=== PATIENT | female | born 1955 | race Caucasian/White ===

== ENCOUNTER → 2023-11-05 12:23 | Outpatient (REF) | payer MEDICARE, SELFPAY ==
[2023-11-05 13:46] LABS: % Basophils 0.9 % (0-2); % Eosinophils 2.3 % (0-6); % Immature Granulocytes 0.9 % (0-0.5); % Lymphocytes 18.7 % (20.5-51.1); % Monocytes 11.2 % (1.7-9.3); Absolute Basophils 0.1 10^3/uL (0-0.2); Absolute Eosinophils 0.2 10^3/uL (0-0.7); Absolute Immature Granulocytes 0.1 10^3/uL (0-0.05); Absolute Lymphocytes 1.3 10^3/uL (1.2-3.4); Absolute Monocytes 0.8 10^3/uL (0.1-0.6); Absolute Neutrophils 4.6 10^3/uL (1.4-6.5); Hematocrit 39.3 % (37.0-47.0); Hemoglobin 13.4 g/dL (12.0-16.0); Mean Corp Hgb Conc. 34.1 g/dL (33.0-37.0); Mean Corpuscular Hgb 30.9 pg (27.0-31.0); Mean Corpuscular Volume 90.6 fL (81.0-99.0); Mean Platelet Volume 10.8 fL (7.4-10.4); Nucleated Red Blood Cells % 0 %; Platelet Count 215 10^3/uL (130-400); Red Blood Cell Count 4.34 10^6/uL (4.20-5.40); Red Cell Dist. Width 12.6 % (11.5-14.5)
[2023-11-05 14:26] LABS: Blood Urea Nitrogen 8 mg/dl (7-17); Calcium 9.1 mg/dl (8.4-10.2); Carbon Dioxide 26 mmol/L (22-30); Chloride 94 mmol/L (98-107); Glucose 99 mg/dl (70-99); Potassium 4.6 mmol/L (3.5-5.1); Sodium 127 mmol/L (135-145); eGFR > 60.00
== END ==
LOC: SDSPAT 12:23
PROVIDERS: ATTENDING PHYSICIAN Student in an Organized Health Care Education/Training Program; FAMILY PHYSICIAN Family Medicine; OTHER PHYSICIAN Internal Medicine Endocrinology, Diabetes & Metabolism
DX: Z01.818 Encounter for other preprocedural examination (principal)
CPT/HCPCS: 36415; 80048; 85025

== ENCOUNTER 2023-11-06 06:19 | Day surgery (SDC) | payer MEDICARE, SELFPAY ==
[2023-11-05 12:41] VITALS: BMI 49.4
--- NOTE | 2023-11-05 16:10 | PTCARENOTE ---
was notified of Na+ 127 collected today; no actions requested. Bessy at 's office was also notified of Na+ result.
[2023-11-06] VITALS (9 sets, daily range): BP systolic 115–145; BP diastolic 53–99; BMI 49.4
[2023-11-06 08:50] LABS: Glucose - Point of Care 146 mg/dl (70-99)
[2023-11-06] MEDS: NORMOSOL-R 1000 IV (08:53)
[2023-11-06] MEDS: VANCOCIN 300 MG IV (08:53)
[2023-11-06] MEDS: TYLENOL 1000 MG PO (08:53)
[2023-11-06] MEDS: VANCOCIN 300 ML IV (08:53)
[2023-11-06] MEDS: MOBIC 15 MG PO (08:54)
[2023-11-06 10:14] LABS: Glucose - Point of Care 131 mg/dl (70-99)
--- NOTE | 2023-11-06 10:32 | CM ---
Addendum entered by Peggy Quach RN 11/06/23 11:11:
CM provided patient's RN with DME script pending signature.
Original Note:
CM was consulted for DME and VN. CM reviewed medical records. CM [facility]. CM will continue to follow for DME needs.
[2023-11-06] MEDS: DILAUDID 0.5 MG IV (12:03)
[2023-11-06 12:12] LABS: Glucose - Point of Care 118 mg/dl (70-99)
--- NOTE | 2023-11-06 12:29 | W.PN.UPDATE ---
Update Note
Progress Note Update
Patient requires bedside commode due to inability to ambulate to bathroom due to non weight bearing status. Patient requires hospital bed for positioning of the body in ways not feasiable with an ordinary bed in order to alleviate pain and patient
requires frequent cahnge in body position and has an immediate need for change in position. Patient requires a wheelchair within the home to complete their daily activities
--- NOTE | 2023-11-06 14:42 | VNURNOTE ---
Home Health Liaison spoke with patient's spouse Chau at 1300 to discuss [facility] nurse/therapy, visits, schedule and homebound status. Chau is agreeable and understands that visits at home will be 2-3 x per week to assess and teach medical
management.
Chau is aware that [facility] will contact them for start of care in 1-2 days after discharge from .
[facility] referral completed in [facility].
Hospital bed, wheelchair and bedside commode ordered from [facility].
Clinicals faxed at 1230 and confirmed with Margy at [facility].
[facility] will call spouse and delivery to be scheduled to home later today.
== END 2023-11-06 14:05 | disposition home or self-care (01) ==
LOC: SDS 06:19
PROVIDERS: ATTENDING PHYSICIAN Student in an Organized Health Care Education/Training Program
DX: S92.311A Displaced fracture of first metatarsal bone, right foot, initial encounter for closed fracture (principal); S92.321A Displaced fracture of second metatarsal bone, right foot, initial encounter for closed fracture; S92.341A Displaced fracture of fourth metatarsal bone, right foot, initial encounter for closed fracture; S92.334A Nondisplaced fracture of third metatarsal bone, right foot, initial encounter for closed fracture; S90.822A Blister (nonthermal), left foot, initial encounter; X58.XXXA Exposure to other specified factors, initial encounter; M86.171 Other acute osteomyelitis, right ankle and foot; Z79.01 Long term (current) use of anticoagulants
CPT/HCPCS: 26746 ×2; 26742 ×2; 11044; 88304; 88311; 82962; 87070; 87075; 87147; 87176; 87205; 97162

== ENCOUNTER → 2024-03-10 12:36 | Outpatient (REF) | payer MEDICARE, SELFPAY ==
[2024-03-10 14:06] LABS: Hemoglobin 13.9 g/dL (12.0-16.0); Mean Corp Hgb Conc. 33.1 g/dL (33.0-37.0); Mean Corpuscular Hgb 31.5 pg (27.0-31.0); Mean Corpuscular Volume 95.2 fL (81.0-99.0); Mean Platelet Volume 10.9 fL (7.4-10.4); Platelet Count 204 10^3/uL (130-400); Red Blood Cell Count 4.41 10^6/uL (4.20-5.40); Red Cell Dist. Width 13.4 % (11.5-14.5); White Blood Cell Count 7.4 10^3/uL (4.8-10.8)
[2024-03-10 14:28] LABS: Blood Urea Nitrogen 13 mg/dl (7-17); Calcium 9.4 mg/dl (8.4-10.2); Carbon Dioxide 30 mmol/L (22-30); Chloride 93 mmol/L (98-107); Glucose 104 mg/dl (70-99); Potassium 5.2 mmol/L (3.5-5.1); Sodium 131 mmol/L (135-145); eGFR > 60.00
== END ==
LOC: SDSPAT 12:36
PROVIDERS: ATTENDING PHYSICIAN Student in an Organized Health Care Education/Training Program; FAMILY PHYSICIAN Family Medicine; OTHER PHYSICIAN Internal Medicine Cardiovascular Disease; OTHER PHYSICIAN Internal Medicine Endocrinology, Diabetes & Metabolism
DX: Z01.818 Encounter for other preprocedural examination (principal)
CPT/HCPCS: 36415; 80048; 85027

== ENCOUNTER 2024-03-15 06:04 | Day surgery (SDC) | payer MEDICARE, SELFPAY ==
[2024-03-10 12:55] VITALS: BMI 46.0
[2024-03-15] VITALS (8 sets, daily range): BP systolic 119–150; BP diastolic 49–64; BMI 46.0
[2024-03-15] MEDS: TYLENOL 1000 MG PO (06:45)
[2024-03-15] MEDS: MOBIC 15 MG PO (06:45)
[2024-03-15] MEDS: NORMOSOL-R 1000 IV (06:46)
[2024-03-15 06:47] LABS: Glucose - Point of Care 157 mg/dl (70-99)
[2024-03-15 08:04] LABS: Glucose - Point of Care 149 mg/dl (70-99)
== END 2024-03-15 09:17 | disposition home or self-care (01) ==
LOC: SDS 06:04
PROVIDERS: ATTENDING PHYSICIAN Student in an Organized Health Care Education/Training Program
DX: E10.69 Type 1 diabetes mellitus with other specified complication (principal); M86.8X7 Other osteomyelitis, ankle and foot; E10.621 Type 1 diabetes mellitus with foot ulcer; L97.512 Non-pressure chronic ulcer of other part of right foot with fat layer exposed
CPT/HCPCS: 28113; 88304; 88311; 82962; 87070; 87075; 87205; Q4118

== ENCOUNTER 2024-07-07 12:54 | Outpatient (RCR) | payer MEDICARE, SELFPAY | END 2024-07-07 23:59 | disposition home or self-care (01) | LOC: RPT 12:54 | PROVIDERS: ATTENDING PHYSICIAN Student in an Organized Health Care Education/Training Program; FAMILY PHYSICIAN Family Medicine | DX: L97.512 Non-pressure chronic ulcer of other part of right foot with fat layer exposed (principal); M79.671 Pain in right foot; M54.16 Radiculopathy, lumbar region; Z73.6 Limitation of activities due to disability | CPT/HCPCS: 97110; 97112; 97163 ==

== ENCOUNTER 2024-08-04 11:53 | Outpatient (RCR) | payer MEDICARE, SELFPAY | END 2024-08-04 23:59 | disposition home or self-care (01) | LOC: RPT 11:53 | PROVIDERS: ATTENDING PHYSICIAN Student in an Organized Health Care Education/Training Program; FAMILY PHYSICIAN Family Medicine | DX: L97.512 Non-pressure chronic ulcer of other part of right foot with fat layer exposed (principal); M79.671 Pain in right foot; M54.16 Radiculopathy, lumbar region; Z73.6 Limitation of activities due to disability | CPT/HCPCS: 97110; 97112 ==

== ENCOUNTER 2024-09-06 15:56 | Outpatient (RCR) | payer MEDICARE, SELFPAY | END 2024-09-06 23:59 | disposition home or self-care (01) | LOC: RPT 15:56 | PROVIDERS: ATTENDING PHYSICIAN Student in an Organized Health Care Education/Training Program; FAMILY PHYSICIAN Family Medicine | DX: L97.512 Non-pressure chronic ulcer of other part of right foot with fat layer exposed (principal); M79.671 Pain in right foot; M54.16 Radiculopathy, lumbar region; Z73.6 Limitation of activities due to disability | CPT/HCPCS: 97110; 97112; 97116 ==

== ENCOUNTER 2024-09-22 12:01 | Outpatient (RCR) | payer MEDICARE, SELFPAY | END 2024-09-22 23:59 | disposition home or self-care (01) | LOC: RPT 12:01 | PROVIDERS: ATTENDING PHYSICIAN Student in an Organized Health Care Education/Training Program; FAMILY PHYSICIAN Family Medicine | DX: L97.512 Non-pressure chronic ulcer of other part of right foot with fat layer exposed (principal); M79.671 Pain in right foot; M54.16 Radiculopathy, lumbar region; Z73.6 Limitation of activities due to disability | CPT/HCPCS: 97110; 97112 ==

== ENCOUNTER 2025-03-01 06:18 | Day surgery (SDC) | payer MEDICARE, SELFPAY ==
[2025-03-01 07:20] VITALS: BP 155/61; BMI 43.3
[2025-03-01 07:30] VITALS: BMI 43.3
[2025-03-01 07:48] LABS: Glucose - Point of Care 155 mg/dl (70-99)
[2025-03-01 09:00] VITALS: BP 86/70
[2025-03-01 09:13] VITALS: BP 107/84
== END 2025-03-01 09:30 | disposition home or self-care (01) ==
LOC: SDS 06:18
PROVIDERS: ATTENDING PHYSICIAN Internal Medicine
DX: Z12.11 Encounter for screening for malignant neoplasm of colon (principal); D12.2 Benign neoplasm of ascending colon; D12.3 Benign neoplasm of transverse colon; K62.1 Rectal polyp; K64.8 Other hemorrhoids; K64.4 Residual hemorrhoidal skin tags; Z86.0101 Personal history of adenomatous and serrated colon polyps; Z79.01 Long term (current) use of anticoagulants
CPT/HCPCS: 45385; 45380; 88305; 82962

== ENCOUNTER 2025-04-25 23:51 | Day surgery (SDC) | payer MEDICARE, SELFPAY ==
[2025-04-25 21:16] VITALS: BP 101/66
[2025-04-25 21:18] LABS: Glucose - Point of Care 70 mg/dl (70-99)
--- NOTE | 2025-04-25 21:45 | ED.GENMED ---
History of Present Illness
General
Chief Complaint: Esophageal Problem
Source: patient
Exam Limitations: none
Time Seen by Provider: 04/25/25 21:36
Nursing documentation reviewed up to this point in time: agreed with
History of Present Illness
History of Present Illness:
Patient with history of atrial fibrillation on Eliquis and type 1 diabetes, presents to ED secondary to persistent sensation of piece of steak stuck in her throat, while having dinner this evening around 7 PM. Since then, patient has not been able
to tolerate even a sip of water. Patient has been constantly spitting up her own saliva. Denies vomiting. Denies previous history of similar symptoms. However, patient and spouse report that recently, patient has had difficult time swallowing
large pills.
Past History
Past History
ED Past Medical History: Asthma, HTN, Hypercholesterolemia, IDDM and Hypothyroidism
ED Past Surgical History: Cholecystectomy, and Gynecological (Hysterectomy)
Social History
Tobacco: Former smoker
Alcohol: Daily (Wine 3 glasses)
Drug: None
Personal:
Living: with family
Employment: Employed
Family History
Family History: Early CAD
Review of Systems
Review of Systems
Allergies reviewed?: Yes
All Other Systems: ROS reviewed and negative except as documented in HPI and ROS
Constitutional: Reports no symptoms; Denies fever
ABD/GI: Reports nausea and other (Sensation of a piece of steak stuck in throat.); Denies abdominal pain or vomiting
Musculoskeletal: Reports no symptoms
Skin: Reports no symptoms
Neurological: Reports no symptoms
Phy Exam
Physical Exam
Physical Exam:
Physical Exam
General: mild distress. afebrile
Head: nc/at. eomi
Neck: supple. no meningeal signs.
Heart: s1/s2 regular rate and rhythm
Lungs: no acute respiratory distress. clear bilaterally
Abdomen: normal bowel sounds. not tender.
Neuro: alert and oriented x 3. no focal neurological deficits
Skin: no rash
Psychiatric: well kept. interactive and cooperative
Extremities: no edema. no calf tenderness.
Course
Orders/Labs/Results
Orders:
Orders
04/25/25 21:40
Glucagon [GlucaGen] 1 mg IV NOW STA
04/25/25 21:46
Basic Metabolic Panel Urgent
Complete Blood Count/No Diff Urgent
Prothrombin Time Urgent
04/25/25 22:15
Glucagon [GlucaGen] 1 mg IV NOW STA
04/25/25 23:28
Glycopyrrolate [Robinul] 0.2 mg .ROUTE .STK-MED ONE
Lidocaine 2% Mpf [Xylocaine Mpf 2%] 100 mg .ROUTE .STK-MED ONE
Phenylephrine HCl/0.9% NaCl [Usman-Synephrine] 1,000 mcg .ROUTE .STK-MED ONE
Rocuronium [place] [Rocuronium] 50 mg .ROUTE .STK-MED ONE
Succinylcholine Chloride [Succinylcholine] 200 mg .ROUTE .STK-MED ONE
Sugammadex Sodium [Bridion] 200 mg .ROUTE .STK-MED ONE
ePHEDrine SULFATE [Emerphed] 50 mg .ROUTE .STK-MED ONE
04/25/25 23:29
Fentanyl Citrate/Pf [Sublimaze] 100 mcg .ROUTE .STK-MED ONE
Propofol [Diprivan] 20 ml .ROUTE .STK-MED
04/26/25 00:32
Fentanyl Citrate/Pf [Sublimaze] 25 mcg IV [id number] PRN
Fentanyl Citrate/Pf [Sublimaze] 25 mcg IV [id number] PRN
Fentanyl Citrate/Pf [Sublimaze] 50 mcg IV [id number] PRN
Ondansetron Injectable [Zofran] 4 mg IV PACU-ONCEPRN PRN
Notify MD As Directed
Notify physician if: for SDS patients with known or suspected sleep obstructive sleep apnea, monitor in the
PACU.
Notify MD for any apneic/desaturation episodes
O2 Therapy [RESP] Urgent
Titrate/Wean O2 to maintain O2 sat greater than (%): 92
Special Instructions: -Provide supplemental oxygen to achieve O2 sat of 92% or greater.
-After 15 min, may wean O2 and discontinue if patient is able to maintain O2 sat of 92%
or greater during recovery period.
If patient is a discharge home, without oxygen therapy, notify anestheiologist if
unable to maintain O2 SAT of 92% or greater on room air for MD clearance.
04/26/25 00:45
Normosol (Mult Electrolytes) [Normosol-R/Plasmalyte-A] 1,000 ml IV PER PROTOCOL
04/26/25 01:00
Flush (0.9% Sodium Chloride) [Flush (Nss)] See Dose Instructions IV PER PROTOCOL
Abnormal Lab Results
04/25/25
21:46
PT 15.7 H Sec
(11.4-14.6)
Sodium 132 L mmol/L
(135-145)
Glucose 52 L* mg/dl
(70-99)
04/25/25 21:46
04/25/25 21:46
Vital Signs
Initial and Last Documented VS:
Initial Vital Signs
Temp Pulse Resp BP Pulse Ox
97.8 F 83 20 101/66 95
04/25/25 21:16 04/25/25 21:16 04/25/25 21:16 04/25/25 21:16 04/25/25 21:16
Last Documented Vital Signs
Temp Pulse Resp BP Pulse Ox
97.5 F 75 13 128/49 94
04/26/25 00:53 04/26/25 01:06 04/26/25 01:06 04/26/25 01:13 04/26/25 01:06
MDM/Problems Addressed
MDM/Problems Addressed:
Patient with moderate distress upon initial evaluation with difficulty tolerating secretion. Discussed with on-call GI physician, Dr.Hannah Arana, who recommends administering glucagon 1mg x 2, 15 min apart.
Unfortunately, even after 2 doses of glucagon, patient remains symptomatic. Patient will require potential endoscopic evaluation.
*Pulse Oximetry
SaO2: 95
Oxygen Mode of Delivery: Room air
Patient hypoxic: no
*Critical Care Note
Total Time (30-74mins, 75-104mins- exclusive of procedures): Not Applicable
ED Attending Note
-
Portions of this chart may have been created with voice recognition software.� Occasional wrong word or��sound alike� substitutions may have occurred due to the inherent limitations of voice recognition software.
Discharge Plan
Departure
Patient Disposition: GI LAB
Date of Disposition: 04/25/25
Time of Disposition: 22:41
Admit to: GI lab
Presentation/result/management discussed w/ accepting /:
Discharge Problem:
Food impaction of esophagus
Interventions
Interventions:
*Risk Screen - Suicide Last Done: 04/25/25 21:16
*General Assessment Last Done: 04/25/25 21:16
*Neglect/Abuse Screening Last Done: 04/25/25 21:16
*ED- Fall Risk Assessment Last Done: 04/25/25 22:24
*ED COVID-19 Vaccine History Last Done: 04/25/25 22:24
*Nursing Disposition Last Done: 04/25/25 23:50
SE-Pbjdku-Qrnyjixsbn Assessment Last Done: 04/25/25 22:24
ED-EENT Assessment Last Done: 04/25/25 22:24
Discharge Date and Time
Discharge Date/Time: 04/25/25 23:50
[2025-04-25 21:52] LABS: Hematocrit 40.9 % (37.0-47.0); Hemoglobin 13.5 g/dL (12.0-16.0); Mean Corp Hgb Conc. 33.0 g/dL (33.0-37.0); Mean Corpuscular Volume 93.4 fL (81.0-99.0); Platelet Count 180 10^3/uL (130-400); Red Cell Dist. Width 13.3 % (11.5-14.5)
[2025-04-25 22:00] VITALS: BP 178/76
[2025-04-25 22:03] LABS: INR 1.23; PT 15.7 Sec (11.4-14.6)
[2025-04-25 22:11] LABS: Blood Urea Nitrogen 12 mg/dl (7-17); Calcium 9.7 mg/dl (8.4-10.2); Carbon Dioxide 26 mmol/L (22-30); Chloride 98 mmol/L (98-107); Glucose 52 mg/dl (70-99); Potassium 3.7 mmol/L (3.5-5.1); Sodium 132 mmol/L (135-145); eGFR > 60.00
[2025-04-25 22:12] LABS: Glucose - Point of Care 92 mg/dl (70-99)
[2025-04-25 23:00] VITALS: BP 170/76
[2025-04-25 23:22] VITALS: BMI 43.8
--- NOTE | 2025-04-25 23:42 | CON.GI ---
Consultation
-
Date/Time Consultation Requested: 04/25/2025 1000pm
Date/Time Consultation Performed: 1145pm
Requesting Provider: Dr Shell
Performing Provider: Dr Arana
Reason for Consultation: Food impaction
Medical History
Chief Complaint / HPI
Chief Complaint: food stuck
History of Present Illness:
Abbi is a 69yo W with h/o DM1 and afib on eliquis who presents for sensation of food stuck in throat. She was eating dinner around 7pm and after having steak felt that it would not go down. She is not tolerating secretions and cannot drink
water. She is uncomfortable. She has h/o dysphagia in the past especially with large pills. She has no issues with liquids. She is known to Dr Fay Seo of GI with recent Cscope done February 2025. She did use eliquis today. Denies chronic
nsaid use. She has no tobacco or ETOH daily intake.
Past Medical History
Past Medical History: Other (Asthma, HTN, hyperlipidemia, hypothyroidism)
Past Surgical History: Cholecystectomy, and Other (Gynecological)
Social History
Tobacco: Former Smoker
Alcohol: Daily
Drug: None
Personal:
Living: With Family
Employment: Employed
Family History
Family History: Other (Denies GI cancers)
Allergies / Home Medications
Allergy/AdvReac Type Severity Reaction Status Date / Time
pollen extracts Allergy congestion Verified 04/25/25 21:20
Sulfa (Sulfonamide Allergy Rash Verified 04/25/25 21:20
Antibiotics)
sulfisoxazole Allergy Rash Verified 04/25/25 21:20
codeine AdvReac Vomiting Verified 04/25/25 21:20
�Medication �Instructions �Recorded
escitalopram oxalate 20 mg tablet 20 mg PO DAILY 08/02/10
levothyroxine 112 mcg tablet 224 mcg PO MOTUWETH 08/02/10
montelukast 10 mg tablet 10 mg PO HS 05/02/16
multivitamin with folic acid 400 1 tab PO DAILY 07/14/17
mcg tablet (Tab-A-Mamie)
biotin 2,500 mcg capsule 2,500 mcg PO DAILY 04/02/21
insulin lispro 100 unit/mL 0 unit SC BOLUS 04/02/21
subcutaneous solution (Humalog
U-100 Insulin)
lisinopril 5 mg tablet 5 mg PO DAILY 04/02/21
metoprolol succinate 25 mg 12.5 mg PO HS 04/02/21
tablet,extended release 24 hr
apixaban 5 mg tablet (Eliquis) 5 mg PO BID ##0 04/06/21
cholecalciferol (vitamin D3) 50 50 mcg PO DAILY 07/25/22
mcg (2,000 unit) capsule (Vitamin
D3)
atorvastatin 80 mg tablet 80 mg PO DAILY 11/04/23
ezetimibe 10 mg tablet 10 mg PO DAILY 11/06/23
acetaminophen 500 mg tablet 1,000 mg PO Q6H PRN pain 03/15/24
torsemide 10 mg tablet 10 mg PO PRN PRN swelling 03/15/24
Review of Systems
-
All other systems: A 12 pt ROS was Negative except as stated above in HPI
Vital Signs
Temp Pulse Resp BP Pulse Ox
97.8 F 77 17 170/76 97
04/25/25 21:16 04/25/25 23:00 04/25/25 23:00 04/25/25 23:00 04/25/25 23:00
Physical Exam
Exam
GEN: No acute distress, conversant spitting up in basin
HEENT: anicteric, extraocular movements intact, clear oropharynx without exudates
GI: soft, obese, non-distended, not tender to palpation, normal active bowel sounds, no hepatosplenomegaly
EXT: warm, well perfused, trace edema bilaterally
NEURO: AAOx3, non-focal
Results
WBC 7.5 10^3/uL (4.8-10.8) 04/25/25 21:46
Hgb 13.5 g/dL (12.0-16.0) 04/25/25 21:46
Hct 40.9 % (37.0-47.0) 04/25/25 21:46
MCV 93.4 fL (81.0-99.0) 04/25/25 21:46
Plt Count 180 10^3/uL (130-400) 04/25/25 21:46
PT 15.7 Sec (11.4-14.6) H 04/25/25 21:46
INR 1.23 04/25/25 21:46
Sodium 132 mmol/L (135-145) L 04/25/25 21:46
Potassium 3.7 mmol/L (3.5-5.1) 04/25/25 21:46
Chloride 98 mmol/L (98-107) 04/25/25 21:46
Carbon Dioxide 26 mmol/L (22-30) 04/25/25 21:46
BUN 12 mg/dl (7-17) 04/25/25 21:46
Creatinine 0.7 mg/dL (0.6-1.0) 04/25/25 21:46
Calcium 9.7 mg/dl (8.4-10.2) 04/25/25 21:46
Diagnostic Image Results: None
Prior GI Procedures:
EGD: None prior
02/2025 Colonoscopy: Dr Seo - Perianal skin tags found on perianal exam.
- Two small polyps in the ascending colon, removed
with a cold snare. Resected and retrieved.
- One small polyp in the transverse colon, removed
with a cold snare. Resected and retrieved.
- Two diminutive polyps in the rectum, removed with a
jumbo cold forceps. Resected and retrieved.
- Diverticulosis in the sigmoid colon.
- Non-bleeding internal hemorrhoids.
- A tattoo was seen in the rectum. The tattoo site
appeared normal.
- Biopsies were taken with a cold forceps from the
right colon and left colon for evaluation of
microscopic colitis.
Assessment / Plan
-
Abbi is a 69yo W with h/o DM1 and afib on eliquis who presents with acute food impaction after eating steak at 7pm today. No improvement after 2 doses of IV glucagon in the ER.
Impression
- Food impaction
- Afib on eliquis
- DM1
- Hyperlipidemia
- Hypothyroidism
- Allergies
- HTN
- CHF
- Asthma
Recommendations
- Urgent EGD today with disimpaction
- Risk/benefits discussed
- Hold anticoagulation
- Intubation prior to EGD to protect airway
- Anticipate d/c home after above
- Close FU with Dr Seo OP basis
-
-
Thank you for consultation and allowing me to participate in the patient's care. Please call the habilitative interventionist GI physician during the after hours with any questions or concerns.
[2025-04-26 00:38] VITALS: BP 170/76
[2025-04-26 00:39] VITALS: BP 150/53
[2025-04-26 00:45] VITALS: BP 140/57
[2025-04-26 01:00] VITALS: BP 127/66
[2025-04-26 01:13] VITALS: BP 128/49
== END 2025-04-26 01:13 | disposition home or self-care (01) ==
LOC: PACU 23:51
PROVIDERS: ATTENDING PHYSICIAN Internal Medicine Gastroenterology; EMERGENCY PHYSICIAN Emergency Medicine; FAMILY PHYSICIAN Family Medicine
DX: T18.128A Food in esophagus causing other injury, initial encounter (principal); W44.F3XA Food entering into or through a natural orifice, initial encounter; K29.70 Gastritis, unspecified, without bleeding; I10 Essential (primary) hypertension; E78.00 Pure hypercholesterolemia, unspecified; E03.9 Hypothyroidism, unspecified; J45.909 Unspecified asthma, uncomplicated; E10.9 Type 1 diabetes mellitus without complications; Z87.891 Personal history of nicotine dependence; I48.91 Unspecified atrial fibrillation; Z79.01 Long term (current) use of anticoagulants
CPT/HCPCS: 43247; 80048; 82962; 85027; 85610; 96374; 96376; 99285; J1610

== ENCOUNTER 2025-05-05 02:51 | Day surgery (SDC) | payer MEDICARE, SELFPAY ==
[2025-05-04 23:37] VITALS: BP 171/71
--- NOTE | 2025-05-05 00:18 | ED.GENMED ---
History of Present Illness
General
Chief Complaint: Swallowing Problem
Source: patient
Exam Limitations: none
Time Seen by Provider: 05/05/25 00:14
History of Present Illness
History of Present Illness:
See MDM
Past History
Past History
ED Past Medical History: Asthma, HTN, Hypercholesterolemia, IDDM and Hypothyroidism
ED Past Surgical History: Cholecystectomy, and Gynecological (Hysterectomy)
Social History
Tobacco: Former smoker
Alcohol: Daily (Wine 3 glasses)
Drug: None
Personal:
Living: with family
Employment: Employed
Family History
Family History: Early CAD
Phy Exam
Physical Exam
Physical Exam:
See MDM
Course
Orders/Labs/Results
Orders:
Orders
05/05/25 00:17
0.9% Sodium Chloride 1000 ml [Nss] 1,000 ml IV BOLUS
Glucagon [GlucaGen] 1 mg IM NOW STA
05/05/25 00:29
Glucagon [GlucaGen] 1 mg IV NOW STA
05/05/25 00:58
Glucagon [GlucaGen] 1 mg IV NOW STA
Vital Signs
Initial and Last Documented VS:
Initial Vital Signs
Temp Pulse Resp BP Pulse Ox
98.3 F 76 18 171/71 96
05/04/25 23:37 05/04/25 23:37 05/04/25 23:37 05/04/25 23:37 05/04/25 23:37
Last Documented Vital Signs
Temp Pulse Resp BP Pulse Ox
98.3 F 76 18 171/71 96
05/04/25 23:37 05/04/25 23:37 05/04/25 23:37 05/04/25 23:37 05/05/25 00:20
MDM/Problems Addressed
Differential Diagnosis Includes:
Note:
CHIEF COMPLAINT(S)
Dysphagia due to food impaction.
HISTORY OF PRESENT ILLNESS
The patient is a 69-year-old female presenting with difficulty swallowing due to food becoming lodged in the esophagus. This has happened previously, with this episode being the second occurrence. It began while attempting to eat shredded chicken
with tomato sauce and gluten-free pasta, prepared to be very soft. Despite these precautions, the food still became stuck. The patient is frustrated, describing this as occurring on the third consecutive night of eating the prepared dish. The
incident occurred just before seeking medical assistance today.
The patient also reported that her blood sugar levels have been running low, recently measuring 71 mg/dL and previously 68 mg/dL.
PHYSICAL EXAM
General: Mildly uncomfortable and constantly spitting. Unable to tolerate secretions
Skin: Warm, dry.
Head: Normocephalic, atraumatic
Neck: Appears supple, trachea midline.
Eyes, Ears, Nose, Mouth, and Throat: Oral mucosa moist.
Cardiovascular: No signs of cyanosis
Respiratory: Respirations are non-labored.
Abdomen: Non-distended
Musculoskeletal: No deformities
Neurological: No focal neurological deficit observed.
Psychiatric: Cooperative, appropriate mood and affect.
PLAN
1. Initiate intravenous (IV) access and administer fluids.
2. Administer glucagon in an attempt to resolve the food impaction.
3. Monitor blood glucose levels and provide intravenous dextrose if needed due to hypoglycemia.
DIFFERENTIAL DIAGNOSIS
The Differential Diagnosis includes, in no particular order and is not limited to:
1. Esophageal stricture
2. Esophageal web
3. Achalasia
4. Eosinophilic esophagitis
5. Esophageal cancer
6. Esophageal motility disorder
7. Schatzki ring
8. Glycogen storage disease
9. Peptic stricture
10. Zenkers diverticulum
SUMMARY OF ENCOUNTER
The patient, a 69-year-old female, was seen in the emergency department for dysphagia due to food impaction. Despite preparing her meals to be soft, she experienced the food getting lodged in the esophagus for the second time. Management included
initiating IV access and the administration of IV glucagon in an attempt to clear the impaction. However, the patient remained uncomfortable and was unable to manage secretions adequately.
DISPOSITION
The patient will be admitted to the GI lab for further intervention.
ASSESSMENT
Dysphagia due to food impaction requiring emergent endoscopy.
EMERGENCY TREATMENTS ADMINISTERED
Intravenous glucagon was administered in two doses.
MANAGEMENT OF THE PATIENTS CARE WAS DISCUSSED WITH
Consultation was held with the orthotic/prosthetic clinician, who agreed to perform an emergent endoscopy.
PLAN
The plan is to proceed with an urgent endoscopic procedure to alleviate the food impaction.
MEDICATION RECONCILIATION
- IV glucagon was administered in two doses.
DIAGNOSIS
Dysphagia (R13.10), likely due to esophageal obstruction/food impaction.
*Pulse Oximetry
SaO2: 96
Oxygen Mode of Delivery: Room air
Patient hypoxic: no
*Critical Care Note
Total Time (30-74mins, 75-104mins- exclusive of procedures): Not Applicable
ED Attending Note
-
Portions of this chart may have been created with voice recognition software.� Occasional wrong word or��sound alike� substitutions may have occurred due to the inherent limitations of voice recognition software.
Discharge Plan
Departure
Patient Disposition: Admit
Date of Disposition: 05/05/25
Time of Disposition: 01:51
Admit to: GI lab
Presentation/result/management discussed w/ accepting MD/DO: Drapery Inspector
Discharge Problem:
Food impaction of esophagus
Prescriptions:
No Action
levothyroxine 112 MCG tablet
224 mcg PO MOTUWETH
escitalopram oxalate 20 MG tablet
20 mg PO DAILY
montelukast 10 MG tablet
10 mg PO HS
multivitamin with folic acid [Tab-A-Mamie] 1 TABLET tablet
1 tab PO DAILY
lisinopril 5 MG tablet
5 mg PO DAILY
insulin lispro [Humalog U-100 Insulin] 100 UNIT/ML solution
0 unit SC BOLUS
Patient Comments:
Insulin Pump- dose depends on patients blood sugar. Patient self doses self with humolog U insulin. Patient gave herself 3 units at 1020 for a blood sugar of 195 on her own machine. Patient dosed self without telling staff first. She uses humalog
insulin, gives herself bolus with meals and PRN. Pt unsure of basal insulin dosage when asked what her sliding scale is.
biotin 2,500 MCG capsule
2,500 mcg PO DAILY
metoprolol succinate 25 MG tablet extended release 24 hr
12.5 mg PO HS
Eliquis 5 MG tablet
5 mg PO BID Qty: 0 0RF
cholecalciferol (vitamin D3) [Vitamin D3] 50 mcg (2,000 unit) Capsule
50 mcg PO DAILY
atorvastatin 80 mg Tablet
80 mg PO DAILY
ezetimibe 10 mg Tablet
10 mg PO DAILY
acetaminophen [Tylenol Ex Str Arthritis Pain] 500 mg Tablet
1,000 mg PO Q6H PRN (Reason: pain)
torsemide 10 mg Tablet
10 mg PO PRN PRN (Reason: swelling)
Referrals:
Jaqui Purcell MD [Family Provider, Family Practice]
Interventions
Interventions:
*Risk Screen - Suicide Last Done: 05/04/25 23:37
*General Assessment Last Done: 05/04/25 23:37
*Neglect/Abuse Screening Last Done: 05/04/25 23:37
*ED- Fall Risk Assessment Last Done: 05/05/25 01:33
*ED COVID-19 Vaccine History Last Done: 05/05/25 01:33
ED-EENT Assessment Last Done: 05/04/25 23:55
NM-Dmktdm-Eluszxdmti Assessment Last Done: 05/04/25 23:55
ED- Pulmonary Assessment Last Done: 05/04/25 23:55
ED- Neurological Assessment Last Done: 05/04/25 23:55
ED Swallowing Screen Last Done: 05/05/25 01:33
Discharge Date and Time
Print Language: GREEK
[2025-05-05] MEDS: NSS 1000 IV (00:23)
[2025-05-05 02:00] VITALS: BP 150/61
--- NOTE | 2025-05-05 03:14 | CON.GI ---
Consultation
-
Date/Time Consultation Requested: 05/05/2025
Date/Time Consultation Performed: 05/05/2025
Requesting Provider:
Performing Provider:
Reason for Consultation: Food impaction
Medical History
Chief Complaint / HPI
Chief Complaint: Food bolus impaction, dysphagia
History of Present Illness:
This is a 69-year-old female with past medical history of hypertension, hyperlipidemia, hypothyroidism, asthma, A-fib on Eliquis, GAVIN uses CPAP, scleroderma, type 1 diabetes, colon polyps who was recently in the emergency room on 04/25/2025 with food
bolus impaction presents now again with food impaction.� She had called me earlier and said that she had eaten chicken but she says that she cooked it soft and blended it but after she ate a piece of chicken she felt that she was unable to swallow
her secretions and has been spitting up, I told her to come into the emergency room.� She received 2 doses of glucagon but still feels that the food is stuck.� She denies any symptoms of reflux. �She has been having trouble swallowing large pills
and also meat and has been trying to be on a softer diet since her recent endoscopy. she had an emergent endoscopy on 04/26/[address] Arana with removal of the food bolus and has an appointment actually scheduled today with Dr. Seo.� She also
has a history of colon polyps and had a initial colonoscopy in [address] Dial and then subsequently had a repeat colonoscopy in February with Dr. Seo and had tubular adenomas then also and was recommended repeat in 3 years.� She currently
denies any abdominal pain, no chest pain or shortness of breath.
Past Medical History
Past Medical History: Other (paroxysmal atrial fibrillation on Eliquis, GAVIN on CPAP, scleroderma, type 1 diabetes on insulin, dyslipidemia, hypertension, chronic lower extremity edema, colon polyps )
Past Surgical History: Other (Cholecystectomy 2020, , total hysterectomy, carpal tunnel release, left heel wound I&D, right foot surgery)
Social History
Tobacco: Former Smoker
Alcohol: Occasional
Drug: None
Family History
Family History: Reviewed & Not Pertinent
Allergies / Home Medications
Allergy/AdvReac Type Severity Reaction Status Date / Time
pollen extracts Allergy congestion Verified 04/25/25 21:20
Sulfa (Sulfonamide Allergy Rash Verified 04/25/25 21:20
Antibiotics)
sulfisoxazole Allergy Rash Verified 04/25/25 21:20
codeine AdvReac Vomiting Verified 04/25/25 21:20
�Medication �Instructions �Recorded
escitalopram oxalate 20 mg tablet 20 mg PO DAILY 08/02/10
levothyroxine 112 mcg tablet 224 mcg PO MOTUWETH 08/02/10
montelukast 10 mg tablet 10 mg PO HS 05/02/16
multivitamin with folic acid 400 1 tab PO DAILY 07/14/17
mcg tablet (Tab-A-Mamie)
biotin 2,500 mcg capsule 2,500 mcg PO DAILY 04/02/21
insulin lispro 100 unit/mL 0 unit SC BOLUS 04/02/21
subcutaneous solution (Humalog
U-100 Insulin)
lisinopril 5 mg tablet 5 mg PO DAILY 04/02/21
metoprolol succinate 25 mg 12.5 mg PO HS 04/02/21
tablet,extended release 24 hr
apixaban 5 mg tablet (Eliquis) 5 mg PO BID ##0 04/06/21
cholecalciferol (vitamin D3) 50 50 mcg PO DAILY 07/25/22
mcg (2,000 unit) capsule (Vitamin
D3)
atorvastatin 80 mg tablet 80 mg PO DAILY 11/04/23
ezetimibe 10 mg tablet 10 mg PO DAILY 11/06/23
acetaminophen 500 mg tablet 1,000 mg PO Q6H PRN pain 03/15/24
torsemide 10 mg tablet 10 mg PO PRN PRN swelling 03/15/24
Review of Systems
-
All other systems: A 12 pt ROS was Negative except as stated above in HPI
Vital Signs
Temp Pulse Resp BP Pulse Ox
98.3 F 88 18 150/61 96
05/04/25 23:37 05/05/25 02:05 05/05/25 02:05 05/05/25 02:00 05/05/25 02:01
Physical Exam
Exam
General: No Apparent Distress and Other (Spitting secretions into a cup)
HEENT: Normocephalic
Respiratory: Clear
Cardiac: S1/S2
GI: Soft, Non Tender, Non Distended and Normal Bowel Sounds
Musculoskeletal: No Clubbing
Skin: Warm
Neuro: Awake, Alert and Oriented
Hematologic/Lymphatic: No Lymphadenopathy
Psych: Calm
Results
Diagnostic Image Results:
labs
04/25/2025 WBC 7.5 hemoglobin 13.5 MCV 93.4 platelets 180 sodium 132 potassium 3.7 chloride 98 bicarb 26 BUN 12 creatinine 0.7 glucose 52 calcium 9.7
Prior GI Procedures:
04/26/2025 endoscopy food in the lower third of the esophagus removal was successful using Gatorade and rescue net gastritis stomach was otherwise normal normal duodenum
03/01/[address] Seo perianal skin tags polyps in the ascending colon TA, transverse colon - TA and rectum � HP diverticulosis in the sigmoid colon nonbleeding internal hemorrhoids tattoo seen in the rectum random colon biopsies
were negative for microscopic colitis,
09/28/[address] Dial for positive Cologuard test 12 mm rectum polyp- TA 5 mm sigmoid polyp- TA diverticulosis in the sigmoid and descending colon internal hemorrhoids random colon biopsies were negative for microscopic colitis
Assessment / Plan
-
1. Food bolus impaction after she had eaten chicken earlier for dinner today and with recent episode of food bolus impaction also on 04/25/2025 requiring emergent endoscopy with removal of food bolus. She received 2 doses of glucagon with no
improvement will schedule her for urgent endoscopy with removal of food bolus and she also has an appointment later today with Dr. Seo which she is going to keep. If she does have evidence of Schatzki's ring or stricture then will need to
schedule for repeat endoscopy with dilatation off of Eliquis she did take her Eliquis last night.
2. History of colon polyps up-to-date with her surveillance her last colonoscopy was in February and prior to that had a colonoscopy in 2020 and had tubular adenomas and needs repeat colonoscopy in 2027
Data Reviewed
-
Old Records: Reviewed
-
-
Thank you for consultation and allowing me to participate in the patient's care. Please call the funeral location manager GI physician during the after hours with any questions or concerns.
[2025-05-05 03:28] VITALS: BP 150/61; BP 153/56; BP 155/55
[2025-05-05 03:55] VITALS: BP 158/58
== END 2025-05-05 03:50 | disposition home or self-care (01) ==
LOC: GI 02:51
PROVIDERS: ATTENDING PHYSICIAN Internal Medicine Gastroenterology; EMERGENCY PHYSICIAN Student in an Organized Health Care Education/Training Program; FAMILY PHYSICIAN Family Medicine
DX: K22.2 Esophageal obstruction (principal); T18.128A Food in esophagus causing other injury, initial encounter; W44.F3XA Food entering into or through a natural orifice, initial encounter; K44.9 Diaphragmatic hernia without obstruction or gangrene; Z79.01 Long term (current) use of anticoagulants
CPT/HCPCS: 43247; 96361; 96374; 96376; 99285; J1610

== ENCOUNTER → 2025-05-11 13:03 | Outpatient (REF) | payer MEDICARE, SELFPAY | LOC: REG 13:03 | PROVIDERS: ATTENDING PHYSICIAN Student in an Organized Health Care Education/Training Program; FAMILY PHYSICIAN Family Medicine | DX: L03.116 Cellulitis of left lower limb (principal) | CPT/HCPCS: 87070; 87075; 87147; 87205 ==

== ENCOUNTER 2025-05-12 06:13 | Day surgery (SDC) | payer MEDICARE, SELFPAY ==
[2025-05-12 12:49] VITALS: BMI 43.5
[2025-05-12 12:50] VITALS: BMI 43.5
[2025-05-12 12:52] VITALS: BP 143/66
[2025-05-12 12:56] LABS: Glucose - Point of Care 121 mg/dl (70-99)
[2025-05-12 14:52] VITALS: BP 139/53
[2025-05-12 15:00] VITALS: BP 136/58
[2025-05-12 15:15] VITALS: BP 143/56
== END 2025-05-12 15:30 | disposition home or self-care (01) ==
LOC: SDS 06:13
PROVIDERS: ATTENDING PHYSICIAN Internal Medicine Gastroenterology
DX: R13.10 Dysphagia, unspecified (principal); K22.2 Esophageal obstruction; K44.9 Diaphragmatic hernia without obstruction or gangrene; K31.7 Polyp of stomach and duodenum
CPT/HCPCS: 43249; 82962; C1726

== ENCOUNTER 2025-05-18 06:14 | Day surgery (SDC) | payer MEDICARE, SELFPAY ==
[2025-05-18 08:28] VITALS: BMI 43.0
[2025-05-18 08:29] VITALS: BMI 43.0
[2025-05-18 08:30] VITALS: BP 132/56
[2025-05-18 08:45] LABS: Glucose - Point of Care 136 mg/dl (70-99)
[2025-05-18 09:50] VITALS: BP 127/59
[2025-05-18 10:00] VITALS: BP 133/59
[2025-05-18 10:09] VITALS: BP 129/60
== END 2025-05-18 10:20 | disposition home or self-care (01) ==
LOC: SDS 06:14
PROVIDERS: ATTENDING PHYSICIAN Internal Medicine Gastroenterology
DX: K29.50 Unspecified chronic gastritis without bleeding (principal); K22.2 Esophageal obstruction; K44.9 Diaphragmatic hernia without obstruction or gangrene; K31.7 Polyp of stomach and duodenum; R13.10 Dysphagia, unspecified
CPT/HCPCS: 43249; 43239; 82962; 88305; 88342; C1726

== ENCOUNTER 2025-07-28 05:46 | Day surgery (SDC) | payer MEDICARE, SELFPAY ==
[2025-07-22 13:43] VITALS: BMI 45.1
[2025-07-28 06:05] VITALS: BMI 45.1
[2025-07-28 06:13] VITALS: BP 130/48
[2025-07-28 06:34] LABS: Glucose - Point of Care 106 mg/dl (70-99)
[2025-07-28] MEDS: TYLENOL 1000 MG PO (06:35)
[2025-07-28] MEDS: NORMOSOL-R/PLASMALYTE-A 1000 IV (06:35)
[2025-07-28] MEDS: MOBIC 15 MG PO (06:35)
[2025-07-28 08:12] VITALS: BP 115/54
[2025-07-28 08:15] VITALS: BP 120/49
[2025-07-28 08:30] VITALS: BP 131/60
[2025-07-28 08:30] LABS: Glucose - Point of Care 79 mg/dl (70-99)
[2025-07-28 08:45] VITALS: BP 125/62
== END 2025-07-28 09:25 | disposition home or self-care (01) ==
LOC: SDS 05:46
PROVIDERS: ATTENDING PHYSICIAN Student in an Organized Health Care Education/Training Program
DX: M24.575 Contracture, left foot (principal); M20.42 Other hammer toe(s) (acquired), left foot
CPT/HCPCS: 28285; 28899; 82962